=== PATIENT | female | born 1995 | race Caucasian/White ===

== ENCOUNTER 2023-06-10 18:18 | Emergency (ER) | payer MEDICAID ==
[~2023-06-10] VITALS: Ht 170.2 cm; Wt 95.5 kg
[2023-06-10 18:32] VITALS: O2SAT 98
[2023-06-10 19:00] VITALS: TEMP 98.6
[2023-06-10] MEDS ORDERED: ACETAMINOPHEN 325MG TABLET PO ONE (19:00)
[2023-06-10] MEDS ORDERED: IBUP-2028 MT (19:45)
[2023-06-10] MEDS ORDERED: TOPUD MT (19:45)
[2023-06-10 20:17] VITALS: BP 122/62; PULSE 72; RESP 20
== END 2023-06-10 20:17 | disposition home or self-care (01) ==
LOC: ER 18:18
DX: M79.671 Pain in right foot (principal); M25.561 Pain in right knee; M54.50 Low back pain, unspecified
CPT/HCPCS: 72100; 73560; 73630; 99284